=== PATIENT | female | born 1965 | race Two or more races ===

== ENCOUNTER 2021-10-15 19:31 | Inpatient (IN) | payer MEDICAID, OTHER ==
[~2021-10-15] VITALS: Ht 165.1 cm; Wt 79.8 kg
[2021-10-15 21:02] LABS: Basophils # (auto) 0.1 10 ^3/uL (0-0.2); Basophils % (auto) 0.5 % (0.0-2.0); Eosinophils # (auto) 0 10 ^3/uL (0-0.8); Eosinophils % (auto) 0.2 % (0.0-7.0); Hematocrit 46.7 % (36.0-46.0); Hemoglobin 15.4 g/dL (12.2-16.2); Lymphocytes # (auto) 1.7 10 ^3/uL (0.4-5.4); Lymphocytes % (auto) 9.2 % (10.0-50.0); Mean Corpuscular Hemoglobin 27.6 pg (28.0-32.0); Mean Corpuscular Hgb Conc. 32.9 g/dL (32.0-36.0); Mean Corpuscular Volume 83.7 fL (80.0-100.0); Monocytes # (auto) 0.3 10 ^3/uL (0-1.3); Monocytes % (auto) 1.6 % (0.0-12.0); Neutrophils # (auto) 16.2 10 ^3/uL (1.6-8.6); Neutrophils % (auto) 88.5 % (37.0-80.0); Red Blood Cells 5.58 10^6/uL (4.0-5.20); Red Cell Distribution Width 13.6 % (11.8-14.3); White Blood Cell 18.4 10^3/uL (4.4-10.8)
[2021-10-15 21:22] LABS: Albumin 4.3 g/dL (3.4-5.0); Potassium 3.7 mmol/L (3.5-5.1)
[2021-10-15 21:27] LABS: BUN/Creatinine Ratio 13.3; Bilirubin, Total 0.4 mg/dL (0.2-1.0); Total Protein 9.2 g/dL (6.4-8.2)
[2021-10-15] MEDS ORDERED: ONDANSETRON HCL 4 MG/2 ML VIAL IV ONE (22:45)
[2021-10-15] MEDS ORDERED: SODIUM CHLORIDE 0.9% 1,000 ML IV ONE (22:45)
[2021-10-15] MEDS ORDERED: MORPHINE SULFATE 4 MG/ML SYR/VIAL IV ONE (22:45)
[2021-10-15] MEDS ORDERED: IOHEXOL 300 MG/ML 100ML BOTTLE IJ ONE (23:03)
[2021-10-15 23:55] LABS: Urine Bacteria FEW /hpf (None Seen); Urine Blood 1+ /uL (Negative); Urine Specific Gravity 1.023 (1.001-1.035); Urine WBC 2 /hpf (0 - 5)
[2021-10-16] MEDS ORDERED: CIPROFLOXACIN 400MG/200ML 200 ML IV ONE (02:00)
[2021-10-16] MEDS ORDERED: metroNIDAZOLE 500MG/100ML 100 ML IV ONE (02:00)
[2021-10-16] MEDS ORDERED: METOCLOPRAMIDE HCL 5MG/ml INJ 2ml VIAL IV ONE (02:00)
[2021-10-16] MEDS ORDERED: SODIUM CHLORIDE 0.9% 1,000 ML IV ONE (02:00)
[2021-10-16] MEDS ORDERED: HYDROmorphone HCL 2 MG/ML VL IV ONE (02:00)
[2021-10-16] MEDS ORDERED: ACETAMINOPHEN 325 MG TAB PO PRN (03:00)
[2021-10-16] MEDS ORDERED: ASPirin 81 mg TAB PO ONE (03:00)
[2021-10-16] MEDS ORDERED: SODIUM CHLORIDE 0.9% 1,000 ML IV SCH (03:00)
[2021-10-16] MEDS ORDERED: HYDROmorphone HCL 2 MG/ML VL IV PRN ×3 (03:00→14:15)
[2021-10-16] MEDS ORDERED: TEMAZEPAM 15 MG CAP PO PRN (03:00)
[2021-10-16] MEDS ORDERED: hydrALAZINE HCL 20 MG/ML VL IV PRN (03:00)
[2021-10-16 03:37] LABS: INR 1.06 (0.9-1.15)
[2021-10-16] MEDS ORDERED: MORPHINE SULFATE INJECTION 2 MG/ML SYRG IV PRN (04:15)
[2021-10-16] MEDS ORDERED: NITROGLYCERIN 0.4 MG SL TAB SL PRN (04:15)
[2021-10-16] MEDS: metroNIDAZOLE 500MG/100ML 100 ML IV SCH ×3 (07:21→21:53)
[2021-10-16 08:22] LABS: Basophils # (auto) 0.1 10 ^3/uL (0-0.2); Basophils % (auto) 0.2 % (0.0-2.0); Eosinophils # (auto) 0 10 ^3/uL (0-0.8); Hemoglobin 14.5 g/dL (12.2-16.2); Lymphocytes # (auto) 1.2 10 ^3/uL (0.4-5.4); Lymphocytes % (auto) 5.1 % (10.0-50.0); Mean Corpuscular Volume 84.6 fL (80.0-100.0); Monocytes % (auto) 4.3 % (0.0-12.0); Neutrophils # (auto) 21.3 10 ^3/uL (1.6-8.6); Neutrophils % (auto) 90.4 % (37.0-80.0); Red Cell Distribution Width 13.6 % (11.8-14.3); White Blood Cell 23.5 10^3/uL (4.4-10.8)
[2021-10-16] MEDS: ONDANSETRON HCL 4 MG/2 ML VIAL IV PRN (08:47)
[2021-10-16] MEDS: MORPHINE SULFATE 4 MG/ML SYR/VIAL IV PRN (08:48)
[2021-10-16] MEDS: cefTRIAXone 1GM/50ML D5W 50 ML IV SCH (08:57)
[2021-10-16] MEDS ORDERED: HEPARIN SODIUM (PORCINE) 5000 UNITS/ML 1ML VIAL IV ONE (09:00)
[2021-10-16] MEDS ORDERED: HEPARIN DRIP/D5W 100UNITS/ML 250 ML IV SCH (09:00)
[2021-10-16 09:47] LABS: Albumin 3.8 g/dL (3.4-5.0); Calcium 8.1 mg/dL (8.5-10.1); Potassium 3.9 mmol/L (3.5-5.1)
[2021-10-16 09:52] LABS: Bilirubin, Total 0.6 mg/dL (0.2-1.0); Total Protein 8.7 g/dL (6.4-8.2)
[2021-10-16] MEDS: ASPirin 81 mg TAB PO SCH (10:00)
[2021-10-16] MEDS: amLODIPine BESYLATE 5 MG TAB PO SCH (10:14)
[2021-10-16] MEDS: FAMOTIDINE (10MG/ML) 2ML VL IV SCH ×2 (10:14→21:53)
[2021-10-16] MEDS ORDERED: ceFAZolin 1GM/50ML 100 ML IV ONE (12:05)
[2021-10-16] MEDS ORDERED: SUCCINYLCHOLINE CHLORIDE 20 MG/ML 10ML VIAL IV ONE (12:07)
[2021-10-16] MEDS ORDERED: fentaNYL CITRATE 100 MCG/2 ML VL ONE (12:09)
[2021-10-16] MEDS ORDERED: MIDAZOLAM HCL 2MG/2ML 2ml VIAL (1mg/ml) ONE (12:09)
[2021-10-16] MEDS ORDERED: BUPIVACAINE 0.25% INJ 50ML VIAL ONE (12:13)
[2021-10-16] MEDS ORDERED: ROCURONIUM 10MG/ML 10ML VIAL IV ONE (12:13)
[2021-10-16] MEDS ORDERED: HYDROCORTISONE SOD SUCC 100 MG/2ML INJ VIAL ONE (12:29)
[2021-10-16 12:30] LABS: INR 1.1 (0.9-1.15); Partial Thromboplastin Time 31.3 sec (23.6-33.0)
[2021-10-16] MEDS ORDERED: LABETALOL HCL 5 MG/ML ML 20ML VIAL IV ONE (13:01)
[2021-10-16] MEDS ORDERED: DexAMETHasone SOD PHOS 10MG/1ML VIAL INJ ONE (13:09)
[2021-10-16] MEDS ORDERED: ONDANSETRON HCL 4 MG/2 ML VIAL ONE (13:35)
[2021-10-16] MEDS ORDERED: ETOMIDATE (2MG/ML) 20ML VIAL IV ONE (13:57)
[2021-10-16] MEDS ORDERED: LABETALOL HCL 5 MG/ML 4ML SYRINGE IV PRN (14:15)
[2021-10-16] MEDS ORDERED: METOCLOPRAMIDE HCL 5MG/ml INJ 2ml VIAL IV PRN (14:15)
[2021-10-16] MEDS ORDERED: ePHEDrine SULFATE 50 MG/ML AMP IV PRN (14:15)
[2021-10-16] MEDS: D5W/SOD CHL 0.45% 1,000 ML IV SCH (14:45)
[2021-10-16 22:00] VITALS: BP 122/68
[2021-10-16] MEDS: HYDROcodone-ACET 5/325MG TAB PO PRN (22:13)
[2021-10-17 05:00] VITALS: BP 102/69
[2021-10-17] MEDS: D5W/SOD CHL 0.45% 1,000 ML IV SCH ×2 (05:15→16:56)
[2021-10-17] MEDS: metroNIDAZOLE 500MG/100ML 100 ML IV SCH ×2 (05:41→14:00)
[2021-10-17 06:54] LABS: Basophils # (auto) 0 10 ^3/uL (0-0.2); Basophils % (auto) 0.2 % (0.0-2.0); Eosinophils # (auto) 0 10 ^3/uL (0-0.8); Hematocrit 39.6 % (36.0-46.0); Hemoglobin 13.1 g/dL (12.2-16.2); Lymphocytes # (auto) 1.7 10 ^3/uL (0.4-5.4); Mean Corpuscular Hemoglobin 27.6 pg (28.0-32.0); Mean Corpuscular Volume 83.7 fL (80.0-100.0); Monocytes # (auto) 0.8 10 ^3/uL (0-1.3); Monocytes % (auto) 4.2 % (0.0-12.0); Neutrophils # (auto) 16.2 10 ^3/uL (1.6-8.6); Neutrophils % (auto) 86.6 % (37.0-80.0); Red Blood Cells 4.74 10^6/uL (4.0-5.20); Red Cell Distribution Width 13.7 % (11.8-14.3); White Blood Cell 18.7 10^3/uL (4.4-10.8)
[2021-10-17 06:56] LABS: Potassium 3.8 mmol/L (3.5-5.1)
[2021-10-17 07:04] LABS: BUN/Creatinine Ratio 11.1; Bilirubin, Total 0.8 mg/dL (0.2-1.0); Calcium 7.8 mg/dL (8.5-10.1); Total Protein 6.6 g/dL (6.4-8.2)
[2021-10-17 09:00] VITALS: BP 121/68
[2021-10-17] MEDS: HYDROcodone-ACET 5/325MG TAB PO PRN ×2 (09:33→16:57)
[2021-10-17] MEDS: amLODIPine BESYLATE 5 MG TAB PO SCH (09:42)
[2021-10-17] MEDS: FAMOTIDINE (10MG/ML) 2ML VL IV SCH ×2 (09:42→22:07)
[2021-10-17] MEDS: cefTRIAXone 1GM/50ML D5W 50 ML IV SCH (09:42)
[2021-10-17] MEDS: ASPirin 81 mg TAB PO SCH (09:42)
[2021-10-17 13:00] VITALS: BP 96/60
[2021-10-17] MEDS: MORPHINE SULFATE 4 MG/ML SYR/VIAL IV PRN ×2 (14:53→23:00)
[2021-10-17 17:00] VITALS: BP 112/60
[2021-10-17] MEDS: metroNIDAZOLE 500 MG TAB PO SCH (22:08)
[2021-10-18] MEDS: MORPHINE SULFATE 4 MG/ML SYR/VIAL IV PRN ×2 (04:03→22:24)
[2021-10-18] MEDS: metroNIDAZOLE 500 MG TAB PO SCH ×3 (06:10→22:22)
[2021-10-18] MEDS: D5W/SOD CHL 0.45% 1,000 ML IV SCH ×2 (06:45→20:05)
[2021-10-18 09:00] VITALS: BP 139/78
[2021-10-18] MEDS: amLODIPine BESYLATE 5 MG TAB PO SCH (09:22)
[2021-10-18] MEDS: ASPirin 81 mg TAB PO SCH (09:22)
[2021-10-18] MEDS: FAMOTIDINE (10MG/ML) 2ML VL IV SCH ×2 (09:22→22:22)
[2021-10-18] MEDS: cefTRIAXone 1GM/50ML D5W 50 ML IV SCH (09:22)
[2021-10-18] MEDS: HYDROcodone-ACET 5/325MG TAB PO PRN ×2 (09:27→17:02)
[2021-10-18 13:08] VITALS: BP 108/49
[2021-10-18] MEDS ORDERED: TPN PER PHARMACY 0 ML IV SCH (13:15)
[2021-10-18] MEDS ORDERED: TPN PER PHARMACY 500 ML IV SCH (13:15)
[2021-10-18 13:25] LABS: INR 1.04 (0.9-1.15); Partial Thromboplastin Time 30.6 sec (23.6-33.0)
[2021-10-18 13:27] LABS: Magnesium 2.4 mg/dL (1.6-2.6); Phosphorus 2.1 mg/dL (2.5-4.90)
[2021-10-18 13:31] LABS: Pre Albumin 10.4 mg/dL (20.0-40.0)
[2021-10-18] MEDS ORDERED: POTASSIUM PHOSP 22MEQ(15MMOLE) in NS 100 ML IV ONE (14:30)
[2021-10-18] MEDS ORDERED: LIDOCAINE 1% (LOCAL ANESTH.) PF 5ml SDV ID ONE (16:00)
[2021-10-18] MEDS ORDERED: PPN PER PHARMACY IV NR ×8 (20:00)
[2021-10-18 22:12] VITALS: BP 132/73
[2021-10-18] MEDS: SODIUM CHLOR 0.9% PF (SALINE LOCK) 10ML VIAL/SYR IV SCH (22:22)
[2021-10-19] MEDS ORDERED: DEXTROSE (50%) 50ML SYRG IV SCH
[2021-10-19] MEDS: InsuLIN REG 1unit/0.01ml Soln (100units/ml) SC SCH ×5 (00:28→23:19)
[2021-10-19] MEDS: ACCU-CHEK COMFORT CURVE STRIP VI SCH ×5 (00:29→23:19)
[2021-10-19] MEDS: MORPHINE SULFATE 4 MG/ML SYR/VIAL IV PRN ×2 (02:25→20:09)
[2021-10-19 05:11] VITALS: BP 108/67
[2021-10-19] MEDS: metroNIDAZOLE 500 MG TAB PO SCH ×3 (06:37→21:56)
[2021-10-19] MEDS: cefTRIAXone 1GM/50ML D5W 50 ML IV SCH (09:04)
[2021-10-19] MEDS: amLODIPine BESYLATE 5 MG TAB PO SCH (09:05)
[2021-10-19] MEDS: FAMOTIDINE (10MG/ML) 2ML VL IV SCH ×2 (09:05→21:56)
[2021-10-19] MEDS: SODIUM CHLOR 0.9% PF (SALINE LOCK) 10ML VIAL/SYR IV SCH ×2 (09:05→21:56)
[2021-10-19] MEDS: ASPirin 81 mg TAB PO SCH (09:05)
[2021-10-19 09:30] VITALS: BP 118/70
[2021-10-19] MEDS: HYDROcodone-ACET 5/325MG TAB PO PRN (12:53)
[2021-10-19 12:56] LABS: Basophils # (auto) 0.1 10 ^3/uL (0-0.2); Basophils % (auto) 0.6 % (0.0-2.0); Eosinophils # (auto) 0.2 10 ^3/uL (0-0.8); Eosinophils % (auto) 2.3 % (0.0-7.0); Hematocrit 35.4 % (36.0-46.0); Hemoglobin 11.6 g/dL (12.2-16.2); Lymphocytes # (auto) 1.7 10 ^3/uL (0.4-5.4); Lymphocytes % (auto) 16.1 % (10.0-50.0); Mean Corpuscular Hemoglobin 27.8 pg (28.0-32.0); Mean Corpuscular Hgb Conc. 32.8 g/dL (32.0-36.0); Mean Corpuscular Volume 84.9 fL (80.0-100.0); Monocytes # (auto) 0.6 10 ^3/uL (0-1.3); Monocytes % (auto) 5.8 % (0.0-12.0); Neutrophils # (auto) 7.8 10 ^3/uL (1.6-8.6); Neutrophils % (auto) 75.2 % (37.0-80.0); Red Blood Cells 4.18 10^6/uL (4.0-5.20); Red Cell Distribution Width 13.9 % (11.8-14.3); White Blood Cell 10.4 10^3/uL (4.4-10.8)
[2021-10-19 13:00] VITALS: BP 117/72
[2021-10-19 15:44] LABS: Alkaline Phosphatase 157 U/L (45-117); Anion Gap 7 (5-15); BUN/Creatinine Ratio 13.7; Blood Urea Nitrogen 7 mg/dL (7-18); Carbon Dioxide 26 mmol/L (21-32); Chloride 105 mmol/L (98-107); GFR African American 162 mL/min; GFR Non-African American 134 mL/min; Glucose 133 mg/dL (74-106); Potassium 3.1 mmol/L (3.5-5.1); Sodium 138 mmol/L (136-145)
[2021-10-19 15:45] LABS: Alanine Aminotransferase 52 U/L (13-56); Albumin 2.6 g/dL (3.4-5.0); Aspartate Aminotransferase 35 U/L (15-37); Bilirubin, Total 0.5 mg/dL (0.2-1.0); Calcium 7.9 mg/dL (8.5-10.1); Magnesium 3.5 mg/dL (1.6-2.6); Phosphorus 2.4 mg/dL (2.5-4.90); Total Protein 6.1 g/dL (6.4-8.2)
[2021-10-19 16:26] VITALS: BP 111/72
[2021-10-19] MEDS ORDERED: POTASSIUM PHOSPHATE 44 MEQ in D5W 5% 250 ML IV ONE (18:00)
[2021-10-19] MEDS: D5W/SOD CHL 0.45% 1,000 ML IV SCH ×2 (18:05→22:45)
[2021-10-19] MEDS ORDERED: TPN PER PHARMACY IV NR ×5 (20:00)
[2021-10-19] MEDS: ONDANSETRON HCL 4 MG/2 ML VIAL IV PRN (20:07)
[2021-10-19 21:35] VITALS: BP 109/67
[2021-10-20] MEDS: ONDANSETRON HCL 4 MG/2 ML VIAL IV PRN ×3 (02:17→20:51)
[2021-10-20 04:56] VITALS: BP 140/78
[2021-10-20] MEDS: ACCU-CHEK COMFORT CURVE STRIP VI SCH ×4 (05:18→23:17)
[2021-10-20] MEDS: metroNIDAZOLE 500 MG TAB PO SCH (05:19)
[2021-10-20] MEDS: InsuLIN REG 1unit/0.01ml Soln (100units/ml) SC SCH ×4 (05:22→23:22)
[2021-10-20] MEDS: D5W/SOD CHL 0.45% 1,000 ML IV SCH (05:25)
[2021-10-20 07:47] LABS: Potassium 3.2 mmol/L (3.5-5.1)
[2021-10-20 07:48] LABS: Albumin 2.7 g/dL (3.4-5.0); Bilirubin, Total 0.3 mg/dL (0.2-1.0); Calcium 7.8 mg/dL (8.5-10.1); Magnesium 3.3 mg/dL (1.6-2.6); Phosphorus 2.7 mg/dL (2.5-4.90); Total Protein 6.2 g/dL (6.4-8.2)
[2021-10-20 08:00] VITALS: BP 127/81
[2021-10-20] MEDS ORDERED: POTASSIUM CHL 20MEQ/100ML 100 ML IV ONE (08:45)
[2021-10-20] MEDS: HYDROcodone-ACET 5/325MG TAB PO PRN (09:20)
[2021-10-20] MEDS: ASPirin 81 mg TAB PO SCH (09:20)
[2021-10-20] MEDS: amLODIPine BESYLATE 5 MG TAB PO SCH ×2 (09:20→09:59)
[2021-10-20] MEDS: FAMOTIDINE (10MG/ML) 2ML VL IV SCH ×2 (09:21→21:18)
[2021-10-20] MEDS: cefTRIAXone 1GM/50ML D5W 50 ML IV SCH (09:21)
[2021-10-20] MEDS: SODIUM CHLOR 0.9% PF (SALINE LOCK) 10ML VIAL/SYR IV SCH ×2 (10:00→21:31)
[2021-10-20] MEDS ORDERED: POTASSIUM PHOSP 22MEQ(15MMOLE) in NS 100 ML IV ONE (11:00)
[2021-10-20 16:50] VITALS: BP 144/81
[2021-10-20] MEDS ORDERED: TPN PER PHARMACY IV NR ×7 (20:00)
[2021-10-20 22:00] VITALS: BP 137/80
[2021-10-21] MEDS: D5W/SOD CHL 0.45% 1,000 ML IV SCH ×2 (01:01→14:45)
[2021-10-21 05:00] VITALS: BP 128/83
[2021-10-21] MEDS: ACCU-CHEK COMFORT CURVE STRIP VI SCH ×3 (05:15→16:28)
[2021-10-21] MEDS: InsuLIN REG 1unit/0.01ml Soln (100units/ml) SC SCH ×3 (05:16→16:28)
[2021-10-21 07:37] LABS: Albumin 2.7 g/dL (3.4-5.0); BUN/Creatinine Ratio 16.4; Magnesium 2.4 mg/dL (1.6-2.6); Potassium 3.7 mmol/L (3.5-5.1)
[2021-10-21 07:40] LABS: Bilirubin, Total 0.2 mg/dL (0.2-1.0); Total Protein 6.2 g/dL (6.4-8.2)
[2021-10-21 08:22] VITALS: BP 153/97
[2021-10-21] MEDS: cefTRIAXone 1GM/50ML D5W 50 ML IV SCH (09:40)
[2021-10-21] MEDS: FAMOTIDINE (10MG/ML) 2ML VL IV SCH ×2 (09:41→21:18)
[2021-10-21] MEDS: ASPirin 81 mg TAB PO SCH (09:41)
[2021-10-21] MEDS: amLODIPine BESYLATE 5 MG TAB PO SCH (09:41)
[2021-10-21] MEDS: SODIUM CHLOR 0.9% PF (SALINE LOCK) 10ML VIAL/SYR IV SCH ×2 (09:41→21:19)
[2021-10-21 12:30] VITALS: BP 131/76
[2021-10-21 16:57] VITALS: BP 138/83
[2021-10-21] MEDS ORDERED: TPN PER PHARMACY IV NR ×7 (20:00)
[2021-10-21 21:54] VITALS: BP 120/72
[2021-10-22 05:14] VITALS: BP 114/67
[2021-10-22] MEDS: D5W/SOD CHL 0.45% 1,000 ML IV SCH (05:48)
[2021-10-22 08:00] VITALS: BP 132/77
[2021-10-22 09:00] VITALS: BP 132/77
[2021-10-22] MEDS: amLODIPine BESYLATE 5 MG TAB PO SCH (10:00)
[2021-10-22] MEDS: cefTRIAXone 1GM/50ML D5W 50 ML IV SCH (10:08)
[2021-10-22] MEDS: FAMOTIDINE (10MG/ML) 2ML VL IV SCH (10:08)
[2021-10-22] MEDS: SODIUM CHLOR 0.9% PF (SALINE LOCK) 10ML VIAL/SYR IV SCH (10:09)
[2021-10-22] MEDS: ASPirin 81 mg TAB PO SCH (10:09)
[2021-10-22 12:30] VITALS: BP 132/77
[2021-10-22 13:00] VITALS: BP 130/78
== END 2021-10-22 14:30 | disposition home or self-care (01) | DRG 710 ==
LOC: ER 19:33 → TELE 10-16 04:12 → TELE-WESTW 10-16 18:20
PROVIDERS: ADMIT Nurse Practitioner Family; ATTEND Family Medicine
PROC: 0DNJ4ZZ Release Appendix, Percutaneous Endoscopic Approach (ICD-10-PCS; 2021-10-16)
PROC: 0DTJ4ZZ Resection of Appendix, Percutaneous Endoscopic Approach (ICD-10-PCS; principal; 2021-10-16 12:21)
PROC: 05HB33Z Insertion of Infusion Device into Right Basilic Vein, Percutaneous Approach (ICD-10-PCS; 2021-10-18)
PROC: B54MZZA Ultrasonography of Right Upper Extremity Veins, Guidance (ICD-10-PCS; 2021-10-18)
DX: A41.9 Sepsis, unspecified organism (principal); K35.33 Acute appendicitis with perforation, localized peritonitis, and gangrene, with abscess; I10 Essential (primary) hypertension; E78.00 Pure hypercholesterolemia, unspecified; Z90.710 Acquired absence of both cervix and uterus; Z91.81 History of falling; K66.0 Peritoneal adhesions (postprocedural) (postinfection)
CPT/HCPCS: 36415; 36569; 71045; 74022; 74177; 80053; 80061; 81001; 81025; 82040; 82962; 83690; 83735; 84100; 84484; 85025; 85610; 85730; 87040; 87426; 93005; 96361; 96374; 96375; G0378; J0330; J0690; J0696; J1100; J1815; J2250; J2405; J3480; J3490; J7060